=== PATIENT | male | born 1980 | race American Indian/Alaskan Native ===

== ENCOUNTER 2019-02-09 19:31 | Emergency (ER) | payer SELFPAY ==
--- NOTE | 2019-02-09 20:27 | Emergency Department Report ---
Blank Doc - Documentation Documentation: pt presents to the ED with c/o paronychia to the right index finger that began on 02/02 has been on bactrim not improving
--- NOTE | 2019-02-10 00:04 | Emergency Department Report ---
ED General Adult HPI - General Chief complaint: Wound/Laceration Stated complaint: RIGHT INDEX FINGER SWOLLEN Time Seen by Provider: 02/09/19 20:22 Source: patient Mode of arrival: Ambulatory Limitations: No Limitations - History of Present Illness Initial comments: 38-year-old [place] emergency department for reevaluation of his finger. He was seen here a couple days ago and was assessed with the finger infection which she stated had pus around around the tip having no incision and drainage was done at that time he was prescribed Bactroban antibodies which she's been taking it with no improvement. Reports continued throbbing and worsening swelling to the finger returns for reevaluation and definitive treatment -: Sudden Location: upper extremity Radiation: non-radiation Quality: dull Consistency: constant Improves with: none Worsens with: none Associated Symptoms: denies: chest pain, cough, diaphoresis, fever/chills, loss of appetite, malaise, nausea/vomiting, shortness of breath, syncope, weakness Treatments Prior to Arrival: none - Related Data Previous Rx's Medication Instructions Recorded Last Taken Type Acetaminophen/Codeine [Tylenol 1 tab PO Q6H PRN #12 tab 02/04/19 Unknown Rx /Codeine # 3 tab] Sulfamethoxazole/Trimethoprim 1 each PO BID #14 tablet 02/04/19 Unknown Rx [Bactrim DS TAB] Chlorhexidine Gluconate [Hibiclens] 10 ml TP BID #240 liquid 02/09/19 Unknown Rx cephALEXin [Keflex] 500 mg PO Q6HR #40 capsule 02/09/19 Unknown Rx Allergies Allergy/AdvReac Type Severity Reaction Status Date / Time No Known Allergies Allergy Verified 02/04/19 14:44 ED Review of Systems ROS: Stated complaint: RIGHT INDEX FINGER SWOLLEN Other details as noted in HPI Constitutional: denies: chills, fever Eyes: denies: eye pain, eye discharge, vision change ENT: denies: ear pain, throat pain Respiratory: denies: cough, shortness of breath, wheezing Cardiovascular: denies: chest pain, palpitations Endocrine: no symptoms reported Gastrointestinal: denies: abdominal pain, nausea, diarrhea Genitourinary: denies: urgency, dysuria Musculoskeletal: denies: back pain, joint swelling, arthralgia Skin: denies: rash, lesions Neurological: denies: headache, weakness, paresthesias Psychiatric: denies: anxiety, depression Hematological/Lymphatic: denies: easy bleeding, easy bruising ED Past Medical Hx - Past Medical History Previous Medical History?: Yes Hx Hypertension: Yes - Surgical History Past Surgical History?: No - Social History Smoking Status: Never Smoker Substance Use Type: None - Medications Home Medications: Home Medications Medication Instructions Recorded Confirmed Last Taken Type Acetaminophen/Codeine [Tylenol 1 tab PO Q6H PRN #12 tab 02/04/19 Unknown Rx /Codeine # 3 tab] Sulfamethoxazole/Trimethoprim 1 each PO BID #14 tablet 02/04/19 Unknown Rx [Bactrim DS TAB] Chlorhexidine Gluconate [Hibiclens] 10 ml TP BID #240 liquid 02/09/19 Unknown Rx cephALEXin [Keflex] 500 mg PO Q6HR #40 capsule 02/09/19 Unknown Rx ED Physical Exam - General Limitations: No Limitations General appearance: alert, in no apparent distress - Head Head exam: Present: atraumatic, normocephalic - Eye Eye exam: Present: normal appearance, PERRL, EOMI Pupils: Present: normal accommodation - ENT ENT exam: Present: normal exam, mucous membranes moist - Neck Neck exam: Present: normal inspection, full ROM. Absent: tenderness - Respiratory Respiratory exam: Present: normal lung sounds bilaterally. Absent: respiratory distress, wheezes, rales, chest wall tenderness, accessory muscle use - Cardiovascular Cardiovascular Exam: Present: regular rate, normal rhythm. Absent: systolic murmur, diastolic murmur, rubs, gallop - GI/Abdominal GI/Abdominal exam: Present: soft, normal bowel sounds. Absent: distended, tenderness, hyperactive bowel sounds, hypoactive bowel sounds, organomegaly, pulsatile mass - Rectal Rectal exam: Present: deferred - Extremities Exam Extremities exam: Present: normal inspection, normal capillary refill, other (swelling to finger paronychia noted to index finger. ) - Back Exam Back exam: Present: normal inspection, full ROM. Absent: CVA tenderness (R), CVA tenderness (L) - Neurological Exam Neurological exam: Present: alert, oriented X3, CN II-XII intact, normal gait - Psychiatric Psychiatric exam: Present: normal affect, normal mood - Skin Skin exam: Present: warm, dry, intact, normal color. Absent: rash ED Course Vital Signs 02/09/19 02/09/19 19:52 20:23 Temperature 97.7 F 97.7 F Pulse Rate 66 66 Respiratory 16 16 Rate Blood Pressure 133/63 133/63 O2 Sat by Pulse 99 99 Oximetry - Procedure Description Procedures done: Incision and drainage. There was prepped and draped in aseptic fashion. A #11 blade was used to incise the finger copious amounts of pus was evacuated. Wound was irrigated with peroxide and saline. The procedure was tolerated well with no complications. Capillary refills were brisk. The patient was neurovascularly intact. Critical care attestation.: If time is entered above; I have spent that time in minutes in the direct care of this critically ill patient, excluding procedure time. ED Disposition Clinical Impression: Paronychia, Encounter for incision and drainage procedure Disposition: TO HOME OR SELFCARE Is pt being admited?: No Does the pt Need Aspirin: No Condition: Stable Instructions: Paronychia (ED), Incision and Drainage (ED), Acute Wound Care (ED) Additional Instructions: Please be sure to wash the wound daily with the antimicrobials Prescriptions: Chlorhexidine Gluconate [Hibiclens] 10 ml TP BID #240 liquid cephALEXin [Keflex] 500 mg PO Q6HR #40 capsule Referrals: GIGI LAMBERT MD [Primary Care Provider] - 2-3 Days (Wound rechecked in 2-3 days. Please)
[2019-02-10 00:20] VITALS: BP 110/69
== END 2019-02-10 00:19 | disposition home or self-care (01) ==
LOC: ED 19:31
DX: L03.011 Cellulitis of right finger (principal)
CPT/HCPCS: 99281